=== PATIENT | male | born 1975 | race Hispanic/Latino ===

== ENCOUNTER 2020-06-13 15:04 | Emergency (ER) | payer BC ==
[~2020-06-13] VITALS: Ht 167.6 cm; Wt 83.9 kg
--- OUTSIDE RECORDS SUMMARY | 2020-06-13 15:23 | XMS REPORT | Continuity of Care Document ---
Author Author [facility] Organization [facility] Address [address] [place] [address] Phone Unavailable Care Team Providers [facility] Executive Director Name Role Phone Unavailable Unavailable Problems Condition Name Condition Details Condition Category Status Onset Date Resolution Date Last Treatment Date Treating Clinician Comments Source Precordial pain Precordial pain Disease Active 2017-06-22 00:00:00 [facility] CTS (carpal tunnel syndrome) CTS (carpal tunnel syndrome) Disease Active 2012-10-02 00:00:00 [facility] Knee pain Knee pain Disease Active 2012-10-01 00:00:00 [facility] Allergies, Adverse Reactions, Alerts This patient has no known allergies or adverse reactions. Family History Family Member Diagnosis Comments Start Date Stop Date Source Maternal grandfather [facility] Maternal grandmother Arth[facility] Paternal grandfather Arthritis [facility] Paternal grandmother Cancer [facility] Social History Social Habit Start Date Stop Date Quantity Comments Source Sex Assigned At [facility] Alcohol intake 2018-12-24 00:00:00 2018-12-24 00:00:00 Current non-drinker of alcohol (finding) [facility] SDOH Food Worry 2017-07-03 00:00:00 2017-07-03 00:00:00 1 [facility] Food Scarcity 2017-07-03 00:00:00 2017-07-03 00:00:00 1 [facility] Smoking Status Start Date Stop Date Source Never smoker [facility] Medications This patient has no known medications. Immunizations Ordered Immunization Name Filled Immunization Name Date Status Comments Source Tdap Tetanus, diphtheria, acellular pertussis Vaccine 2012-04-07 00:00:00 Completed [facility] Procedures This patient has no known procedures. Encounters Start Date/Time End Date/Time Encounter Type Admission Type Attendi ng Clinicians Care Facility Care Department Encounter ID Source 2017-08-23 00:00:00 2017-08-23 00:00:00 Outpatient [facility] [id number] [facility] 2017-07-09 08:41:42 2017-07-09 08:41:42 Outpatient [facility] [id number] [facility] 2017-07-03 10:53:21 2017-07-03 10:53:21 Outpatient [facility] [id number] [facility] 2017-06-22 04:01:30 2017-06-22 04:01:30 Emergency [facility] [id number] [facility] 2017-06-22 02:19:11 2017-06-22 02:19:11 Emergency [facility] [id number] [facility] Results This patient has no known results.
--- OUTSIDE RECORDS SUMMARY | 2020-06-13 15:23 | XMS REPORT | Clinical Summary ---
Author Author [facility] Organization [facility] ict Address Unknown Phone Unavailable Care Team Providers Care [place] [facility] Name Role Phone PCP Unavailable Allergies No Known Allergies Medications No known medications Active Problems Problem Noted Date Precordial pain 06/22/2017 CTS (carpal tunnel syndrome) 10/02/2012 Knee pain 10/01/2012 Immunizations Name Administration Dates Next Due Influenza Vaccine, 07/03/2017 (Deferred: Ken nt Refused) Seasonal, Injectable Tdap Tetanus, diphtheria, 04/07/2012 acellular pertussis Vaccine Family History Medical History Relation Name Comments Heart Maternal Grandfather Arthritis Maternal Grandmother Arthritis Paternal Grandfather Cancer Paternal Grandmother Relation Name Status Comments Brother Alive Father Alive Maternal Grandfather Maternal Grandmother Mother Paternal Grandfather Paternal Grandmother Sister Alive Social History Date Tobacco Use Types Packs/Day Years Used Never Smoker Smokeless Tobacco: Never Used Tobacco Cessation: Counseling Given: No Drinks/Week oz/Week Comments Alcohol Use No Food Insecurity Answer Date Recorded Within the past 12 months, you worried that your Never ana e 07/03/2017 food would run out before you got money to buy more. Within the past 12 months, the food you bought Never true 07/03/2017 just didn't last and you didn't have mo adryan to get more. Sex Assigned at Date Recorded Not on file Industry Job Start Date Occupation Not on file Not on file Not on file Travel End Travel History Travel Start No recent travel history available. Last Filed Vital Signs Not on file Plan of Treatment Not on file Goals Goal Patient Associated Recent Progress Patient-Stat Aut hor Goal Type Problems ed? Eat Healthy Lifestyle No Emily Browne Results Not on fileafter 06/13/2019
--- NOTE | 2020-06-13 16:40 | Diagnostic Imaging Report ---
X-ray right finger History: Crush injury Findings: Mild comminution of the tuft of the distal phalanx of the fifth digit with avulsion of the nail from its bed. Impression: As above. Signed by: Robin Ayers MD on 06/13/2020 4:37 PM
--- NOTE | 2020-06-13 17:10 | NUR ---
PATIENT BACK TO TRIAGE. EVALUATED BY DR. DA SILVA
[2020-06-13] MEDS ORDERED: TYLENOL # 31 EA PO (17:17)
[2020-06-13] MEDS: TETANUS/DIPHTHERIA TOX ADULT 0.5 ML SYR IM ONE (17:25)
[2020-06-13] MEDS: BACITRACIN ZINC 0.9GM TP ONE (17:26)
[2020-06-13] MEDS: HYDROCODONE/APAP 7.5MG-325MG 1 EA TAB PO ONE (17:26)
[2020-06-13] MEDS ORDERED: CEPHALEXIN500 MG PO (17:27)
--- NOTE | 2020-06-13 17:27 | Emergency Department Note ---
History of Present Illnes History of Present Illness Chief Complaint: Extremity Trauma/Pain History of Present Illness This is a 44 year old male RHD that smashed with R small finger on a heavy rock, suffer abrasion, denies any other injuries. Historian: Patient Arrival Mode: Car Additional Treatment FIN[employer]CIAL SERVICES INTERN: NONE Onset (how long ago): hour(s) (3) Location: R SM finger Radiation: Reports non-radiation Severity: moderate Onset quality: sudden Duration (how long): hour(s) (3) Timing of current episode: constant Progression: worsening Relieving factors: none Exacerbating factors: movement Associated symptoms: Reports denies other symptoms Treatments prior to arrival: none Past Medical/Family History Physician Review I have reviewed the patient's past medical and family history. Any updates have been documented here. Past Medical History Recent Fever: No Clinical Suspicion of Infectio: No New/Unexplained Change in Ment: No Past Medical History: None Other Surgery: DEVIATED SEPTUM Social History Smoking Cessation: Never Smoker Counseling Performed: No Alcohol Use: None Any Illegal Drug Use: No Other Any Pre-Existing Lines (PICC,: No Review of Systems Review of Systems Constitutional: Reports no symptoms EENTM: Reports no symptoms Cardiovascular: Reports no symptoms Respiratory: Reports no symptoms Gastrointestinal: Reports no symptoms Genitourinary: Reports no symptoms Musculoskeletal: Reports as per HPI Integumentary: Reports as per HPI Neurological: Reports no symptoms Psychological: Reports no symptoms Endocrine: Reports no symptoms Hematological/Lymphatic: Reports no symptoms Physical Exam Related Data Allergies: Coded Allergies: No Known Allergies (Unverified , 06/13/20) Triage Vital Signs Vital Signs Date Time Temp Pulse Resp B/P (MAP) Pulse Ox O2 Delivery O2 Flow Rate FiO2 06/13/20 15:24 98.2 81 18 156/103 98 Room Air Vital signs reviewed: Yes Physical Exam CONSTITUTIONAL Constitutional: Present well-developed, Present well-nourished HENT HENT: Present normocephalic, Present atraumatic, Present oropharynx clear/moist, Present nose normal HENT L/R: Present left ext ear normal, Present right ext ear normal EYES Eyes: Reports PERRL, Reports conjunctivae normal NECK Neck: Present ROM normal PULMONARY Pulmonary: Present effort normal, Present breath sounds normal CARDIOVASCULAR Cardiovascular: Present regular rhythm, Present heart sounds normal, Present capillary refill normal, Present normal rate GASTROINTESTINAL Abdominal: Present soft, Present nontender, Present bowel sounds normal GENITOURINARY Genitourinary: Present exam deferred SKIN Skin: Present warm, Present dry MUSCULOSKELETAL Musculoskeletal: Present ROM normal, Present other (right small finger with 1 cm x 2 cm skin avulsion lateral aspect, full range of motion but painful, neurovascularly intact distally.) NEUROLOGICAL Neurological: Present alert, Present oriented x 3, Present no gross motor or sensory deficits PSYCHOLOGICAL Psychological: Present mood/affect normal, Present judgement normal Procedures Orthopedic Splinting/Casting Side: right Upper exremity injury location: finger (small finger) Upper extremity immobilizer: aluminum form splint Additional comments neuro vasc intact Assessment & Plan Medical Decision Making MDM Patient is a 44-year-old male here with a finger injury, tuft fracture, no fingernail involvement. We'll treat symptomatically with the splint follow-up orthopedics. Wound will heal by secondary intention. We'll prescribe antibiotics. Assessment & Plan Final Impression: (1) Closed fracture of tuft of distal phalanx of finger (2) Abrasion Depart Disposition: HOME, SELF-CARE Last Vital Signs Date Time Temp Pulse Resp B/P (MAP) Pulse Ox O2 Delivery O2 Flow Rate FiO2 06/13/20 17:12 98.3 84 18 148/64 98 Room Air Home Meds Active Scripts Acetaminophen/Codeine* (TYLENOL # 3*) 1 Ea Tab, 1 TAB PO Q4HR, #15 TAB Prov:KACIE DA SILVA MD 06/13/20 Medications in the ED Bacitracin Zinc 1 ea ONCE ONCE TP ; Start 06/13/20 at 17:15; Stop 06/13/20 at 17:16; Status DC Tetanus/ Diphtheria Toxoids 0.5 ml ONCE ONCE IM ; Start 06/13/20 at 17:15; Stop 06/13/20 at 17:16; Status DC Acetaminophen/ Hydrocodone Bitart 1 ea ONCE ONCE PO ; Start 06/13/20 at 17:15; Stop 06/13/20 at 17:16; Status DC KACIE DA SILVA MD Jun 13, 2020 17:27
--- NOTE | 2020-06-13 17:31 | NUR ---
RIGHT 5TH FINGER CLEANED WITH SOAP/WATER ANTIBIOTIC APPLYED, COVERED WITH TELFA SPLINT APPLYED
== END 2020-06-13 17:32 | disposition home or self-care (01) ==
LOC: ER 15:21
DX: S62.636A Displaced fracture of distal phalanx of right little finger, initial encounter for closed fracture (principal); W23.1XXA Caught, crushed, jammed, or pinched between stationary objects, initial encounter; Y99.0 Civilian activity done for income or pay
CPT/HCPCS: 90714; 99283

== ENCOUNTER → 2020-10-18 | Day surgery (SDC) | payer BC ==
[~2020-10-18] MED LIST: ACETAMINOPHEN 1000 MG/100 ML 100 ML IV ONE; ACETAMINOPHEN/CODEINE 300MG - 30MG TAB ONE; BUPIVACAINE HCL 0.5% INJ 30 ML VIAL INJ ONE; CEFAZOLIN SOD 1 GM/NS 50ML 50 ML IV ONE; CEPHALEXIN500 MG PO; DEXAMETHASONE SOD PHOS INJ 4 MG/ML VIAL ONE; FENTANYL CITRATE/PF 100MCG/2 ML INJ ONE; IBUPROFEN200 MG PO; KETOROLAC TROMETHAMINE 30 MG/ML VIAL ONE; LIDOCAINE HCL 2% LOCAL INJ 5 ML SDV VIAL INJ ONE; MIDAZOLAM HCL 2 MG/2 ML VIAL ONE; ONDANSETRON HCL INJ 2MG/ML 2ML 2 MG/ML VIAL ONE; PROPOFOL IV EMULSION 10 MG/ML 20 ML VIAL ONE; SEVOFLURANE INHAL SOLN 250 ML PEN BTL ONE; TYLENOL # 31 EA PO
[2020-10-18 08:50] VITALS: BP 136/82
== END | disposition home or self-care (01) ==
LOC: OR 05:11
PROVIDERS: ATTEND Specialist
DX: G56.03 Carpal tunnel syndrome, bilateral upper limbs (principal); R00.1 Bradycardia, unspecified; Z01.810 Encounter for preprocedural cardiovascular examination; Z01.812 Encounter for preprocedural laboratory examination; Z20.822 Contact with and (suspected) exposure to COVID-19
CPT/HCPCS: 29848; 93005; J0131; J0690; J1100; J1885; J2001; J2250; J2405; J2704; J3010; U0002